=== PATIENT | female | born 1995 | race Caucasian/White ===

== ENCOUNTER 2016-04-24 17:28 | Emergency (ER) | payer OTHER ==
--- NOTE | ~2016-04-24 | ER ---
PATIENT'S NAME: ESTEBAN MCCAIN [facility] AGE: 20 Y [address] ROOM: [place] [id number] LOCATION: [facility] ADMIT DATE: 04/24/2016 ER/Outpatient Report DISCHARGE DATE: 04/24/2016 FAMILY PHYSICIAN: Oj Quispe MD ATTENDING PHYSICIAN: Arturo Wills Time of Arrival: 1733 hours. Time of Evaluation: 1733 hours. CHIEF COMPLAINT: Right lower quadrant abdominal pain. HISTORY OF PRESENT ILLNESS: The patient states she has been having some right lower quadrant abdominal pain since April 22. It has been intermittent, comes and goes, has become more consistent this evening. She did go to [facility]. They evaluated her, was concerned with the right lower quadrant pain and wanted her evaluated further. So, she was sent here to the ER. She denies having any chest pain, has not been short of breath. She has been nauseated, but no vomiting. Pain is in that right lower quadrant over towards the umbilical area. She has had chills. Denies any difficulty urinating. She states she had a normal bowel movement this morning. ALLERGIES: CEFTIN CAUSES A RASH. MEDICATIONS: control. PAST MEDICAL HISTORY: Benign. PAST SURGERIES: ACL repair, wisdom teeth. [employer] HISTORY: Last menstrual period was 2 weeks ago. SOCIAL HISTORY: Denies use of tobacco, drugs, or alcohol. REVIEW OF SYSTEMS: All negative other than those mentioned in the HPI. PHYSICAL EXAMINATION: PATIENT'S NAME: ESTEBAN MCCIAN [facility] AGE: 20 Y [address] ROOM: [place] [address] LOCATION: [facility] ADMIT DATE: 04/24/2016 ER/Outpatient Report DISCHARGE DATE: 04/24/2016 FAMILY PHYSICIAN: Oj Quispe MD ATTENDING PHYSICIAN: Arturo Wills VITAL SIGNS: She weighed 78.5 kg; blood pressure is 142/87; pulse of 98; respirations 20; temperature of 98.9, tympanic; O2 saturation was 100% on room air. GENERAL: She is awake, alert, and oriented x4. SKIN: [place], warm, and dry. RESPIRATIONS: Even and nonlabored. LUNGS: Lung sounds are clear throughout. HEART: Regular rate and rhythm. ABDOMEN: Soft and nondistended. Bowel sounds are present. EMERGENCY DEPARTMENT COURSE: Saline lock was initiated. Lab work was drawn. The patient was given Zofran 4 mg IV. LABORATORY DATA AND X-RAYS: CBC is within normal limits. Chem panel is within normal limits. Clean-catch UA was obtained. It shows blood on the micro. It does show 2-5 white cells, negative for bacteria. Lab work that came with the patient from [facility] shows negative urine . CT of the abdomen was completed. Radiologist calls and reports that the appendix is negative for appendicitis. She does have thick wall of the bladder reflected of a cystitis. IMPRESSION: 1. Right lower quadrant abdominal pain. 2. Cystitis. PLAN: The patient was given a prescription for Bactrim DS to take for 3 days. Fluids, Tylenol, or ibuprofen as needed. She is to follow up with her primary provider if symptoms persist or worsen. She verbalized understanding. THOMAS TAY APRN FOR MD JENNIFFER MARS/claudia /[id number] d: 04/25/16 0045 t: 05/04/16 1731, OUTPATIENT REPORT
[2016-04-24 17:54] LABS: BASOPHIL # 0.1 K/uL (0.0-0.2); BASOPHIL % 0.5 %; EOSINOPHIL # 0.1 K/uL (0.0-0.5); EOSINOPHIL % 0.6 %; HEMATOCRIT 39.7 % (33.0-46.0); HEMOGLOBIN 13.4 g/dL (11.0-15.0); IMMATURE GRANULOCYTE % 0.2 %; LYMPHOCYTE # 2.4 K/uL (0.8-4.0); MCH 30.7 pg (27.0-34.0); MCHC 33.8 gm/dL (32.0-36.5); MCV 90.8 fl (83.0-98.0); MONOCYTE # 0.7 K/uL (0.0-1.0); MONOCYTE % 6.4 %; MPV 10.2 fl (9.4-12.4); NEUTROPHIL # (ANC) 7.6 K/uL (1.8-7.8); NEUTROPHIL % 70.3 %; NRBC % 0 /100WBC (0-0.00); PLATELET COUNT 211 K/uL (150-450); RBC 4.37 M/uL (3.50-5.00); RDW-CV 11.5 % (11.9-14.6); WBC 10.8 K/uL (4.0-11.0)
[2016-04-24 18:10] LABS: ALK PHOS 50 IU/L (33-138); ALT 22 IU/L (12-78); ANION GAP 15.6 (10.0-19.0); AST 16 IU/L (10-40); BLOOD UREA NITROGEN 10 mg/dL (6-24); CALCIUM 9.1 mg/dL (8.5-10.5); CHLORIDE 103 mMol/L (96-110); CO2 22 mMol/L (22-32); CREATININE 0.8 mg/dL (0.5-1.1); POTASSIUM 3.6 mMol/L (3.7-5.1); SODIUM 137 mMol/L (135-145); TOTAL BILIRUBIN 0.3 mg/dL (0.0-1.5); TOTAL PROTEIN 7.9 g/dL (6.0-8.4)
[2016-04-24 18:12] LABS: ESTIMATED GFR (MDRD EQUATION) > 60
[2016-04-24 18:40] LABS: BILIRUBIN URINE NEGATIVE (NEGATIVE); BLOOD URINE 50 /UL (NEGATIVE); GLUCOSE URINE NEGATIVE (NEGATIVE); KETONE URINE NEGATIVE (NEGATIVE); LEUKOCYTES URINE NEGATIVE /UL (NEGATIVE); NITRITE URINE NEGATIVE (NEGATIVE); PROTEIN URINE NEGATIVE (NEGATIVE); UROBILINOGEN URINE NORMAL (NORMAL)
[2016-04-24 18:41] LABS: COLOR URINE YELLOW (YELLOW); TURBIDITY URINE CLEAR (CLEAR)
[2016-04-24 18:45] LABS: BACTERIA URINE NEGATIVE (NEGATIVE); EPITHELIAL URINE RARE #/HPF (NEGATIVE)
== END 2016-04-24 19:40 | disposition disaster alternative care site (69) ==
LOC: GMED 17:28
PROVIDERS: Emergency Medicine; Nurse Practitioner Family
DX: N30.90 Cystitis, unspecified without hematuria (principal); Z88.1 Allergy status to other antibiotic agents; Z98.890 Other specified postprocedural states
CPT/HCPCS: J2405; Q9967